=== PATIENT | female | born 1990 | race Caucasian/White ===

== ENCOUNTER 2021-09-29 23:32 | Inpatient (IN) | payer OTHER ==
[~2021-09-29] VITALS: Ht 170.2 cm; Wt 94.3 kg
[2021-09-30] MEDS ORDERED: NALBUPHINE HCL 10 MG/ML AMP IVP PRN ×2 (01:15→08:15)
[2021-09-30] MEDS ORDERED: TERBUTALINE SULFATE 1 MG/ML VIAL SUBCUT ONE (01:15)
[2021-09-30] MEDS ORDERED: NALBUPHINE HCL 10 MG/ML AMP IM PRN (01:15)
[2021-09-30] MEDS ORDERED: LR 1,000 ML IV ONE (01:15)
[2021-09-30] MEDS ORDERED: OXYTOCIN/0.9 % SODIUM CHLORIDE 1,000 ML IV SCH ×2 (01:15→14:30)
[2021-09-30] MEDS ORDERED: LR 1,000 ML IV SCH (01:15)
[2021-09-30 02:05] LABS: BASOPHILS % (AUTO) 0.3 % (0.0-2.0); EOSINOPHILS # (AUTO) 0.1 K/uL (0.0-0.4); EOSINOPHILS % (AUTO) 0.4 % (0.0-4.0); HEMATOCRIT 36.2 % (36-48); LYMPHOCYTES # (AUTO) 2.8 K/uL (1.0-5.5); LYMPHOCYTES % (AUTO) 16.6 % (20.5-51.5); MEAN CORPUSCULAR HEMOGLOBIN 29 pg (27-31); MEAN CORPUSCULAR HGB CONC 33 % (32-36); MEAN CORPUSCULAR VOLUME 87 fL (79.0-98.0); MONOCYTES % (AUTO) 5.9 % (1.7-9.3); NEUTROPHILS % (AUTO) 76.8 % (40.0-70.0); PLATELET COUNT (AUTO) 156 K/uL (130-430); RED BLOOD CELL COUNT(AUTO) 4.16 MIL/uL (4.2-6.2); RED CELL DISTRIBUTION WIDTH 16.8 % (9.0-15.0); WHITE BLOOD COUNT (AUTO) 16.9 K/uL (4.8-10.8)
[2021-09-30] MEDS ORDERED: fentaNYL CITRATE/PF 100 MCG/2 ML AMP ONE (05:38)
[2021-09-30] MEDS ORDERED: ROPIVACAINE HCL/PF 0.2% 200 ML ONE (05:39)
[2021-09-30] MEDS ORDERED: NALOXONE HCL 0.4 MG/ML AMP (NARCAN) IVP PRN ×2 (08:15→14:30)
[2021-09-30] MEDS ORDERED: ONDANSETRON HCL 4 MG/2 ML VIAL IVP PRN (08:15)
[2021-09-30] MEDS ORDERED: DIPHENHYDRAMINE INJ 50 MG/ML VIAL IVP PRN (08:15)
[2021-09-30 08:26] VITALS: BP_SYST 119
[2021-09-30] MEDS ORDERED: FENT2mCg/mL-ROPIVA0.2%/NS EPID 200 ML EP SCH (08:30)
[2021-09-30] MEDS ORDERED: LIGHT MINERAL OIL 10 ML VIAL MC ONE (09:09)
[2021-09-30] MEDS ORDERED: LIDOCAINE PF 1% 30ML(POUR BTL) INJ ONE (11:57)
[2021-09-30] MEDS ORDERED: LIDOCAINE HCL/PF 1% 10 ML AMPUL INJ ONE (12:15)
[2021-09-30] MEDS ORDERED: OXYCODONE/ACETAMINOPHEN 5-325 TABLET PO PRN ×2 (14:30)
[2021-09-30] MEDS ORDERED: DERMOPLAST SPRAY TP PRN (14:30)
[2021-09-30] MEDS ORDERED: HYDROCORTISONE 0.5% CREAM 28.4 GM CREAM.GM. TP PRN (14:30)
[2021-09-30] MEDS ORDERED: OXYTOCIN/0.9 % SODIUM CHLORIDE 1,000 ML IV ONE (14:30)
[2021-09-30] MEDS ORDERED: ANUSOL 1 EA SUPP.RECT (PREPARATION H) RC PRN (14:30)
[2021-09-30] MEDS ORDERED: DIPH-TET-PERTUS Vaccine 0.5 ML VIAL (ADACEL) I.M. PRN (14:30)
[2021-09-30] MEDS ORDERED: WITCH HAZEL LEAF 1 MED.PAD MED.PAD TP PRN (14:30)
[2021-09-30] MEDS ORDERED: RHO(D) IMMUNE GLOBULIN/MALTOSE 1500 UNITS/1.3 ML (WINHRO) IM PRN (14:30)
[2021-09-30] MEDS ORDERED: METHYLERGONOVINE MALEATE 0.2 MG TABLET PO PRN (14:30)
[2021-09-30] MEDS ORDERED: MEASLES,MUMPS&RUBELLA VACC/PF 12500 UNIT/0.5 ML VIAL SUBQ PRN (14:30)
[2021-09-30] MEDS ORDERED: HYDROcodone/ACETAMIN 5-325 MG TAB (NORCO/ VICODIN) PO PRN (14:30)
[2021-09-30] MEDS ORDERED: LANOLIN 7 GM OINT. TP PRN (14:30)
[2021-09-30 17:31] LABS: HEMATOCRIT 28.9 % (36-48); HEMOGLOBIN 9.6 g/dL (12.0-16.0); MEAN CORPUSCULAR HEMOGLOBIN 29 pg (27-31); MEAN CORPUSCULAR HGB CONC 33 % (32-36); MEAN CORPUSCULAR VOLUME 86 fL (79.0-98.0); PLATELET COUNT (AUTO) 159 K/uL (130-430); RED BLOOD CELL COUNT(AUTO) 3.36 MIL/uL (4.2-6.2); RED CELL DISTRIBUTION WIDTH 17.2 % (9.0-15.0)
[2021-09-30 17:32] LABS: WHITE BLOOD COUNT (AUTO) 24.8 K/uL (4.8-10.8)
[2021-09-30 17:43] LABS: BAND % (MANUAL) 8 % (0-6); BASOPHILS % (MANUAL) 0 % (0-2); EOSINOPHILS % (MANUAL) 1 % (0-7); LYMPHOCYTES % (MANUAL) 7 % (20-46); MONOCYTES % (MANUAL) 7 % (0-11)
[2021-09-30] MEDS: IBUPROFEN 600 MG TABLET PO SCH ×2 (17:45→23:50)
[2021-09-30] MEDS ORDERED: CEFAZOLIN 2 GM IVPB PREMIX 50 ML IV ONE (20:30)
[2021-09-30] MEDS: SENNOSIDES/DOCUSATE SODIUM 1 TAB TABLET(SENOKOT-S) PO SCH (20:49)
[2021-09-30] MEDS ORDERED: TEMAZEPAM 15 MG CAPSULE PO PRN (21:00)
[2021-10-01] MEDS: IBUPROFEN 600 MG TABLET PO SCH ×4 (06:00→23:55)
[2021-10-01] MEDS: DOCUSATE SODIUM 100 MG CAPSULE PO SCH (08:33)
[2021-10-01 09:19] LABS: BASOPHILS % (AUTO) 0.2 % (0.0-2.0); EOSINOPHILS % (AUTO) 0.2 % (0.0-4.0); HEMATOCRIT 23.8 % (36-48); LYMPHOCYTES # (AUTO) 2.4 K/uL (1.0-5.5); LYMPHOCYTES % (AUTO) 13.9 % (20.5-51.5); MEAN CORPUSCULAR HEMOGLOBIN 29 pg (27-31); MEAN CORPUSCULAR HGB CONC 34 % (32-36); MEAN CORPUSCULAR VOLUME 87 fL (79.0-98.0); NEUTROPHILS # (AUTO) 13.5 K/uL (1.8-7.7); NEUTROPHILS % (AUTO) 79.7 % (40.0-70.0); PLATELET COUNT (AUTO) 139 K/uL (130-430); RED BLOOD CELL COUNT(AUTO) 2.73 MIL/uL (4.2-6.2); RED CELL DISTRIBUTION WIDTH 17.2 % (9.0-15.0); WHITE BLOOD COUNT (AUTO) 16.9 K/uL (4.8-10.8)
[2021-10-01] MEDS: SENNOSIDES/DOCUSATE SODIUM 1 TAB TABLET(SENOKOT-S) PO SCH (23:55)
[2021-10-02] MEDS: IBUPROFEN 600 MG TABLET PO SCH ×2 (05:42→12:15)
[2021-10-02] MEDS: DOCUSATE SODIUM 100 MG CAPSULE PO SCH (12:17)
== END 2021-10-02 18:10 | disposition home or self-care (01) | DRG 807 ==
LOC: SPU 23:32
PROVIDERS: ADMIT Specialist; ATTEND Specialist
PROC: 0W8NXZZ Division of Female Perineum, External Approach (ICD-10-PCS; principal; 2021-09-30)
PROC: 10D07Z6 Extraction of Products of Conception, Vacuum, Via Natural or Artificial Opening (ICD-10-PCS; 2021-09-30)
PROC: 3E0R3BZ Introduction of Anesthetic Agent into Spinal Canal, Percutaneous Approach (ICD-10-PCS; 2021-09-30)
PROC: 00HU33Z Insertion of Infusion Device into Spinal Canal, Percutaneous Approach (ICD-10-PCS; 2021-09-30)
DX: O16.4 Unspecified maternal hypertension, complicating childbirth (principal); Z37.0 Single live birth; Z3A.39 39 weeks gestation of pregnancy; Z20.822 Contact with and (suspected) exposure to COVID-19
CPT/HCPCS: 36415; 81002; 85007; 85025; 85027; 86886; 86900; 86901; 94760; J0690; J2001; J2300; J2590; J3010